=== PATIENT | male | born 1990 | race Caucasian/White ===

== ENCOUNTER 2021-09-10 00:20 | Inpatient (IN) | payer OTHER ==
[~2021-09-10] VITALS: Ht 167.6 cm; Wt 60.3 kg
[2021-09-10 03:01] LABS: BASOPHILS % 0.2 % (0.0-2.0); HEMATOCRIT. 46.9 % (42.0-52.0); LYMPHOCYTES % 16.9 % (20.0-50.0); MEAN CORPUSCULAR HEMOGLOBIN 31.5 pg (28.0-32.0); MEAN CORPUSCULAR VOLUME 92.5 fL (80.0-94.0); MEAN PLATELET VOLUME 9.7 fl (7.4-10.4); MONOCYTES % 6.4 % (2.0-8.0); NEUTROPHILS % 76.5 % (40.0-76.0); PLATELET 258 x1000/uL (130-400); RED BLOOD CELL COUNT 5.07 mill/uL (4.7-6.1); RED CELL DISTRIBUTION WIDTH 13.6 % (11.6-14.6)
[2021-09-10 03:09] LABS: CHLORIDE 106 mEq/L (98-107)
[2021-09-10 09:35] VITALS: BP 108/66
[2021-09-10] MEDS ORDERED: GUAIFENESIN 200MG/10ML SUGAR FREE UDC PO PRN (12:00)
[2021-09-10] MEDS ORDERED: ONDANSETRON HCL 4MG/2ML INJ IV PRN (12:00)
[2021-09-10] MEDS ORDERED: DEXT 5%/0.45% NACL 1000ML 500 ML IV ONE (12:00)
[2021-09-10] MEDS ORDERED: ACETAMINOPHEN 325MG TABLET PO PRN ×2 (12:00)
[2021-09-10] MEDS ORDERED: DIPHENHYDRAMINE 50MG/ML VIAL IV PRN (12:00)
[2021-09-10] MEDS ORDERED: MAGNESIUM/ALUMINUM HYDROXIDE/SIMETHICONE 30ML UDC PO PRN (12:00)
[2021-09-10 13:23] LABS: BG BASE EXCESS -0.3 mmol/L (-2.0-2.0); BG CARBOXYHEMOGLOBIN 0.3 % (0.5-1.5); BG DEOXYHEMOGLOBIN 2.7 % (0.0-5.0); BG FRACTION INSPIRED OXYGEN 21; BG HCO3 ACT 22.4 mmol/L (22.0-26.0); BG METHEMOGLOBIN 0.1 % (0.0-1.5); BG OXYGEN SATURATION 97.3 % (92.0-98.5); BG OXYHEMOGLOBIN 96.9 % (94.0-97.0); BG PCO2 31.7 mmHg (35.0-45.0); BG PH 7.467 (7.350-7.450); BG PO2 85.9 mmHg (75.0-100.0); BG SAMPLE SITE RIGHT BRACHIAL; BG TOTAL HEMOGLOBIN 15.2 g/dL (12.0-18.0); BG VENT MODE ROOM AIR
[2021-09-10] MEDS ORDERED: [UNRECOGNIZED DRUG - OTHER] PO (13:29)
[2021-09-10] MEDS ORDERED: LOPE2TAB26 PO (13:29)
[2021-09-10] MEDS ORDERED: ATEN-42 PO (13:39)
[2021-09-10] MEDS ORDERED: AZIT250T12 PO (13:39)
[2021-09-10] MEDS ORDERED: CEFD250S3 MT (13:41)
[2021-09-10] MEDS ORDERED: DEXA0.5S MT (13:42)
[2021-09-10] MEDS ORDERED: ALBUTEROL 6.7GM HFA INHALER ORI PRN (16:00)
[2021-09-10] MEDS ORDERED: ZOLPIDEM TARTRATE 5MG TABLET PO PRN (21:00)
== END 2021-09-10 16:45 | disposition left against medical advice (07) | DRG 137 ==
LOC: ER 00:20 → 7EST 04:15 → ENRESERV 06:30
PROVIDERS: ADMIT Internal Medicine; ATTEND Internal Medicine
DX: U07.1 COVID-19 (principal); J96.91 Respiratory failure, unspecified with hypoxia; G82.50 Quadriplegia, unspecified; G72.9 Myopathy, unspecified; R00.0 Tachycardia, unspecified; J98.11 Atelectasis; J20.8 Acute bronchitis due to other specified organisms; Z99.3 Dependence on wheelchair; Z88.6 Allergy status to analgesic agent
CPT/HCPCS: 36415; 36600; 71045; 80053; 82375; 82805; 83605; 83880; 84145; 84484; 85025; 87426; 93005; 99285; C9803